=== PATIENT | male | born 1945 | race Caucasian/White ===

== ENCOUNTER 2023-07-08 15:22 | Emergency (ER) | payer MEDICARE, OTHER ==
[~2023-07-08] VITALS: Ht 177.8 cm; Wt 129.3 kg
[2023-07-08] MEDS ORDERED: HUMALOG MI100 UNIT/4 SUB-Q ×2 (15:56→15:57)
[2023-07-08] MEDS ORDERED: LANTUS100 UNITS/ (16:01)
[2023-07-08] MEDS ORDERED: LIPITOR40 MG PO (16:02)
[2023-07-08] MEDS ORDERED: VITAMIN C500 M5 PO (16:02)
[2023-07-08] MEDS ORDERED: CLOPIDOGREL75 MG PO (16:03)
[2023-07-08] MEDS ORDERED: FUROSEMIDE40 MG PO (16:07)
[2023-07-08] MEDS ORDERED: PROSCAR5 MG PO (16:07)
[2023-07-08] MEDS ORDERED: LEVOTHYROXINE75 MC1 PO (16:08)
[2023-07-08] MEDS ORDERED: LOSARTAN POTASS25 MG PO (16:08)
[2023-07-08] MEDS ORDERED: METOPROLOL SUC100 MG PO (16:09)
[2023-07-08] MEDS ORDERED: FLOMAX0.4 MG PO (16:10)
[2023-07-08] MEDS ORDERED: SENNA8.6 MG PO (16:10)
[2023-07-08] MEDS ORDERED: VITAMIN D3125 MC1 PO (16:10)
[2023-07-08] MEDS ORDERED: FAMOTIDINE20 MG PO (16:11)
[2023-07-08] MEDS ORDERED: NEURONTIN300 MG PO (16:11)
[2023-07-08] MEDS ORDERED: ELIQUIS5 MG PO (16:11)
[2023-07-08 16:12] LABS: BASOPHILS 0.3 % (0-2); EOSINOPHILS 1.9 % (0-6); HEMATOCRIT 34.8 % (35.0-50.0); HEMOGLOBIN 11.7 g/dL (12.0-18.0); LYMPHOCYTES 26.6 % (24-44); MCH 28.9 (27-36); MCHC 33.5 g/dl (30-36); MCV 86.2 fl (81-99); MONOCYTES 8.5 % (0-12); NEUTROPHILS 62.7 % (39-80); PLATELET COUNT 151 K/uL (140-440); RBC 4.03 M/ul (4.3-5.7); RDW 17.2 (10.5-15.0)
[2023-07-08] MEDS ORDERED: METFORMIN HCL1000 M1 PO (16:12)
[2023-07-08] MEDS ORDERED: ACETAMINOPHEN500 MG PO (16:12)
[2023-07-08 16:22] LABS: ALBUMIN 3.7 g/dL (3.4-5.0); ALBUMIN/GLOBULIN RATIO 0.79 (1.1-2.4); ANION GAP 15.4 (7-21); BILIRUBIN, TOTAL 0.5 ng/dL (0.2-1.0); BUN/CREATININE RATIO 25.25 (6.0-28.6); CALCIUM 9.2 mg/dL (8.5-10.1); CREATININE, SERUM 0.99 mg/dL (0.70-1.30); MAGNESIUM 1.3 mg/dL (1.8-2.4); POTASSIUM 4.4 mmol/L (3.5-5.1); PROTEIN, TOTAL 8.4 g/dL (6.4-8.2)
[2023-07-08 18:46] VITALS: BP 125/48
--- NOTE | 2023-07-09 17:10 | EKG ---
[facility] [address] [place], [place] [address] Signed Sinus rhythm with 1st degree AV block Low voltage QRS Abnormal QRS-T angle, consider primary T wave abnormality Abnormal ECG No previous ECGs available Confirmed by ISAAK DAMON MD ([id number]) on 07/09/2023 5:09:48 PM Electronically Signed By: ISAAK DAMON 07/09/23 1710 PATIENT NAME: HEATHER YOO Electrocardiogram DATE OF : 49 PHYSICIAN: ISAAK DAMON REPORT #: [id number] REPORT IS CONFIDENTIAL AND NOT TO BE RELEASED WITHOUT AUTHORIZATION
== END 2023-07-08 18:46 | disposition home or self-care (01) ==
LOC: ED 15:22
PROVIDERS: Emergency Medicine
DX: R07.89 Other chest pain (principal); E66.01 Morbid (severe) obesity due to excess calories; K21.9 Gastro-esophageal reflux disease without esophagitis; E83.42 Hypomagnesemia; I25.10 Atherosclerotic heart disease of native coronary artery without angina pectoris; I11.0 Hypertensive heart disease with heart failure; I50.9 Heart failure, unspecified; Z95.5 Presence of coronary angioplasty implant and graft; Z79.4 Long term (current) use of insulin; Z79.899 Other long term (current) drug therapy; Z79.01 Long term (current) use of anticoagulants; Z79.890 Hormone replacement therapy
CPT/HCPCS: 36415; 71045; 80053; 83735; 84484; 85025; 93005; 93010; 96365; 99285-25; J3475